=== PATIENT | female | born 1965 | race Caucasian/White ===

== ENCOUNTER 2016-12-20 15:19 | Emergency (ER) | payer MEDICAID, OTHER ==
[2016-12-20 16:36] VITALS: BP 154/92
[2016-12-20] MEDS ORDERED: Acetaminophen/HYDROcodone 325-10 MG Tab PO ONE (16:53)
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
--- NOTE | 2016-12-21 09:57 | CR ---
Subchondral cysts within the distal pole of the scaphoid. No acute fracture.
== END 2016-12-20 17:20 | disposition home or self-care (01) ==
LOC: JP.ED 15:19
DX: S60.211A Contusion of right wrist, initial encounter (principal); F17.210 Nicotine dependence, cigarettes, uncomplicated; Z88.2 Allergy status to sulfonamides; Z90.710 Acquired absence of both cervix and uterus; Z98.890 Other specified postprocedural states; W22.8XXA Striking against or struck by other objects, initial encounter
CPT/HCPCS: 73110; 99284; A9270